=== PATIENT | female | born 1990 | race African-American/Black ===

== ENCOUNTER 2020-02-27 15:20 | Emergency (ER) | payer SELFPAY ==
[~2020-02-27] VITALS: Ht 157.5 cm; Wt 49.9 kg
[2020-02-27 15:23] VITALS: BP 123/78
== END 2020-02-27 22:19 | disposition left against medical advice (07) ==
LOC: ER 15:20
DX: R06.02 Shortness of breath (principal); Z53.21 Procedure and treatment not carried out due to patient leaving prior to being seen by health care provider

== ENCOUNTER 2024-09-08 09:34 | Emergency (ER) | payer OTHER ==
[~2024-09-08] VITALS: Ht 157.5 cm; Wt 48.5 kg
[2024-09-08 10:09] VITALS: BP 134/81; PULSE 77; RESP 17; TEMP 98.1; O2SAT 97
[2024-09-08] MEDS ORDERED: DEXTLIQ4 OR (10:20)
[2024-09-08] MEDS ORDERED: AZIT500T PO (10:20)
--- NOTE | 2024-09-08 10:22 | ED.PDOC ---
History of Present Illness HPI Comments 4-year-old black female presents to the [facility] complaining of flu-like syndrome cough sore throat fever yesterday aching everywhere Chief Complaint: Sore Throat Time Seen by MD: 09:54 Reviewed Notes: Nurses Notes, Medications, Allergies Information Source: Patient Mode of Arrival: Ambulatory Timing: Days Duration: Since onset Severity: Moderate Fever: Questionable Context: Recent: URI, Sore throat Symptoms: Fever, Cough, Nasal symptoms, Sore throat Modifying Factors: Nothing Associated Signs and Symptoms: Weakness, Myalgia Past Medical History PAST MEDICAL HISTORY: Denies Surgical History: Denies all surgeries FUGITIVE INVESTIGATOR History: No Pertinent FUGITIVE INVESTIGATOR History Social History Smoker: Non-Smoker Alcohol: Denies ETOH Use Lives In: Home Constitutional: Chills, Fatigue, Fever EENTM: Nasal Discharge, Nose Congestion, Throat Pain, Throat Swelling, Voice Changes Respiratory: Cough Cardiovascular: No Symptoms Reported Gastrointestinal: No Symptoms Reported Genitourinary: No Symptoms Reported Neurological: No Symptoms Reported Musculoskeletal: No Symptoms Reported, DEFERRED Integumentary: No Symptoms Reported Allergic/Immunocompromised: others Hematologic/Lymphatic: No Symptoms Reported Endocrine: No Symptoms Reported Psychiatric: No symptoms Reported All Other Systems: Reviewed and Negative Physical Exam General Appearance: Mild Distress, Normal HEENT: Normal ENT Inspection, PERRL/EOMI, Pharyngeal Erythema, Sinuses Neck: Full Range of Motion, Non-Tender, Normal, Normal Inspection Respiratory: Chest Non-Tender, Lungs Clear, No Accessory Muscle Use, No Respiratory Distress, Normal Breath Sounds Cardiovascular: No Edema, No JVD, No Murmur, No Gallop, Normal Peripheral Pulses, Regular Rate/Rhythm Breast Exam: Deferred Gastrointestinal: No Organomegaly, Non Tender, No Pulsatile Mass, Normal Bowel Sounds, Soft Genitalia: Deferred Pelvic: Deferred Rectal: Deferred Extremities: No calf tenderness, Normal capillary refill, Normal inspection, Normal range of motion, Non-tender, No pedal edema Neurologic: Alert, groundsman II-XII nml as Tested, No Motor Deficits, Normal Affect, Normal Mood, No Sensory Deficits Cerebellar Function: Normal Reflexes: Normal Skin: Dry, Normal Color, Warm Peripheral Pulses: 1+ carotid (R), 1+ carotid (L) Lymphatic: No Adenopathy Was a procedure done? Was a procedure done?: No Fever Differential Dx Differential Diagnosis: Influenza, Viral Syndrome, Pharyngitis X-Ray, Labs, Meds, VS Vital Signs Date Time Temp Pulse Resp B/P (MAP) Pulse Ox O2 Delivery O2 Flow Rate FiO2 09/08/24 10:09 77 17 97 Room Air 09/08/24 10:09 98.1 77 17 134/81 (98) 97 98.1 09/08/24 09:45 98.2 88 18 131/87 (102) 96 98.2 X-Ray, Labs, Meds, VS Comment Course in the [facility] eventful patient came in complaining of flu-like syndrome with a sore throat fever yesterday and congestion Patient has no past medical history no past surgical history she just drink some alcohol and use marijuana patient has flu-like syndrome with pharyngitis and will be treated as such Time of 1ST Reevaluation: 09:54 Reevaluation 1ST: Unchanged Time of 2ND Reevaluation: 18:32 Reevaluation 2ND: Improved Consultation: PCP Patient Education/Counseling: Diagnosis, Treatment, Prognosis, Need For Follow Up Family Education/Counseling: Diagnosis, Treatment, Prognosis, Need For Follow Up Departure 1 Departure Time of Disposition: 10:16 Impression: Primary Impression: Acute infective pharyngitis Additional Impressions: URI with cough and congestion Body aches Disposition: 01 HOME / SELF CARE / HOMELESS Condition: Fair Additional Instructions: Fluids and follow up with your PCP e-Prescriptions Dextromethorphan-Acetaminophen (Triaminic Flu/Cough/Fever) Liq 2 TSP OR TID for 10 Days, #300 LIQ Prov: CARLEE CARLSON MD 09/08/24 Azithromycin (Zithromax) 500 Mg Tab 1 TAB PO DAILY for 5 Days, #5 TAB Prov: CARLEE CARLSON MD 09/08/24 Discharged With: Self Critical Care Note Critical Care Time?: No Stability Stability form required: No Heart Score Heart Score: Heart Score Response (Comments) Value History N/A 0 EKG N/A 0 Age <45 0 Risk Factors No known risk factors 0 Troponin N/A 0 Total 0 CARLEE CARLSON MD Sep 08, 2024 10:22
== END 2024-09-08 10:26 | disposition home or self-care (01) ==
LOC: ER 09:34
DX: J02.9 Acute pharyngitis, unspecified (principal); M79.10 Myalgia, unspecified site